=== PATIENT | male | born 1975 | race Hispanic/Latino ===

== ENCOUNTER 2021-06-03 18:22 | Outpatient (CLI) | payer SELFPAY | END 2021-06-03 18:23 | disposition home or self-care (01) | LOC: RAD 18:22 | PROVIDERS: ATTEND Family Medicine | DX: L03.114 Cellulitis of left upper limb (principal) ==

== ENCOUNTER 2021-06-03 19:18 | Emergency (ER) | payer OTHER, SELFPAY ==
[2021-06-03] MEDS ORDERED: Boostrix 0.5 ML (Tdap) VIAL ONE (20:08)
== END 2021-06-03 20:15 | disposition home or self-care (01) ==
LOC: ERS 19:18
DX: S60.451A Superficial foreign body of left index finger, initial encounter (principal); E11.9 Type 2 diabetes mellitus without complications; Y92.89 Other specified places as the place of occurrence of the external cause; Z23 Encounter for immunization; Z79.4 Long term (current) use of insulin; Z79.899 Other long term (current) drug therapy; W45.8XXA Other foreign body or object entering through skin, initial encounter
CPT/HCPCS: 90471; 90715; 99283

== ENCOUNTER 2024-05-25 08:34 | Emergency (ER) | payer SELFPAY ==
[2024-05-25] MEDS ORDERED: Bacitracin 1 PK ONE (09:59)
[2024-05-25] MEDS ORDERED: TETANUS AND DIPHTHERIA TOX/PF 0.5 ML DISP.SYRIN ONE (09:59)
[2024-05-25] MEDS ORDERED: Ketorolac Tromethamine 30 MG (1 mL) VIAL ONE (09:59)
== END 2024-05-25 10:14 | disposition home or self-care (01) ==
LOC: ERS 08:34
DX: S61.212A Laceration without foreign body of right middle finger without damage to nail, initial encounter (principal); E11.9 Type 2 diabetes mellitus without complications; Z23 Encounter for immunization; Z79.84 Long term (current) use of oral hypoglycemic drugs; W31.9XXA Contact with unspecified machinery, initial encounter; Y93.89 Activity, other specified
CPT/HCPCS: 90471; 90714; 96372; 99283; J1885